=== PATIENT | female | born 1955 | race Caucasian/White ===

== ENCOUNTER 2018-07-03 12:14 | Outpatient (CLI) | payer OTHER | END 2018-07-03 12:16 | disposition home or self-care (01) | LOC: SONOGRAMA 12:14 | DX: N95.0 Postmenopausal bleeding (principal); N95.1 Menopausal and female climacteric states ==

== ENCOUNTER 2021-01-21 08:48 | Emergency (ER) | payer OTHER ==
[~2021-01-21] VITALS: Ht 167.6 cm; Wt 79.4 kg
[2021-01-21] MEDS ORDERED: DAFLONEX-XL 11300 MG (09:07)
== END 2021-01-21 16:01 | disposition home or self-care (01) ==
LOC: ER 08:48
DX: K29.00 Acute gastritis without bleeding (principal); Z20.822 Contact with and (suspected) exposure to COVID-19
CPT/HCPCS: 74177; Q9965